=== PATIENT | male | born 1985 | race African-American/Black ===

== ENCOUNTER 2022-11-11 12:33 | Emergency (ER) | payer MEDICAID ==
[~2022-11-11] VITALS: Ht 185.4 cm; Wt 113.4 kg
[2022-11-11 12:36] VITALS: BP 142/96; PULSE 86; RESP 20; TEMP 98; O2SAT 99
[2022-11-11] MEDS ORDERED: KETOROLAC 30 MG/ML VIAL IM ONE (12:55)
[2022-11-11] MEDS ORDERED: IBUP-2213 PO (15:32)
[2022-11-11] MEDS ORDERED: ACET-8905 PO (15:32)
[2022-11-11 15:41] VITALS: BP 142/74; PULSE 78; RESP 18; TEMP 97.6; O2SAT 99
--- NOTE | 2022-11-11 15:47 | NUR ---
Patient discharged with v/s stable. Written and verbal after care instructions given and explained. Patient alert, oriented and verbalized understanding of instructions. Police with in custody. All questions addressed prior to discharge. ID band removed. Patient advised to follow up with PMD. Rx of NORCO 5-325, IBUPROFEN given. Patient educated on indication of medication including possible reaction and side effects. Opportunity to ask questions provided and answered.
== END 2022-11-11 15:45 | disposition home or self-care (01) ==
LOC: MED 12:33
DX: S82.141A Displaced bicondylar fracture of right tibia, initial encounter for closed fracture (principal); R03.0 Elevated blood-pressure reading, without diagnosis of hypertension; W18.30XA Fall on same level, unspecified, initial encounter; Y93.89 Activity, other specified; Y92.89 Other specified places as the place of occurrence of the external cause; Y99.8 Other external cause status
CPT/HCPCS: 29505; 73562; 73590; 96372; 99284; J1885